=== PATIENT | female | born 1985 | race Caucasian/White ===

== ENCOUNTER 2016-11-02 01:06 | Emergency (ER) | payer OTHER ==
[2016-11-02] MEDS ORDERED: Morphine 2 MG/ML Syringe IVPUSH ONE (01:27)
[2016-11-02] MEDS ORDERED: Famotidine 20 MG/2 ML SDV IVPUSH ONE (01:27)
[2016-11-02] MEDS ORDERED: Sodium Chloride 0.9% 2.5 ML Syringe FLUSH PRN (01:27)
[2016-11-02] MEDS ORDERED: Sodium Chloride 0.9% 1,000 ML IV ONE (01:27)
[2016-11-02] MEDS ORDERED: Ondansetron 4 MG/2 ML SDV IVPUSH ONE (01:27)
--- NOTE | 2016-11-02 01:31 | EDM.PDOC ---
ED HPI GENERAL MEDICAL PROBLEM - General Chief Complaint: Abdominal Pain Stated Complaint: ABDOMINAL PAIN Time Seen by Provider: 11/02/16 01:09 - History of Present Illness INITIAL COMMENTS - FREE TEXT/NARRATIVE: HISTORY AND PHYSICAL: History of present illness: The patient is a 31-year-old female who in 2012 had her gallbladder evaluated and since that time has lost a significant amount of weight and has been doing relatively well until the last one year; she states that one year ago she was with her son and since that time she has had issues but she believes to be determined gallbladder, upper abdominal discomfort bloating and nausea that have recurred on and off over the last one year but did not feel that the symptoms were significant enough to see a provider . Patient presents tonight stating that she woke several hours ago with epigastric discomfort and fullness associated with nausea but no chest pain no shortness of breath no vomiting. The patient states that throughout the course of the one year she has never had pain this severe and this was completely different. She had one episode of diarrhea earlier tonight and one when she woke up with the pain but it was not black or bloody. Prior to yesterday she had normal bowel movements. She has no urinary complaints no back or flank pain and no gynecologic complaints. gets her periods every month and denies . The only surgery she's had on her abdomen are C-sections and she had a thyroidectomy as a teenager for Graves' disease which is well controlled. Patient states that she took ibuprofen for the pain before she came here and she rates it as an 8/10. Initially she said it felt like a deep aching pain but has become more sharp and does not radiate. The patient does not drink alcohol and ate dinner last evening at 6 PM which was baked chicken and no fatty foods. She says that over the last one year she has not noted a definite association of the pain with that she eats. She has no history of heartburn or increased gas. Review of systems: As per history of present illness and below otherwise all systems reviewed and negative. Past medical history: As per history of present illness and as reviewed below otherwise noncontributory. Surgical history: As per history of present illness and as reviewed below otherwise noncontributory. Social history: No reported history of drug or alcohol abuse. Family history: As per history of present illness and as reviewed below otherwise noncontributory. Physical exam: General: Well-developed obese female who is nontoxic vital signs are noted by me. HEENT: Atraumatic, normocephalic, negative for conjunctival pallor or scleral icterus, mucous membranes moist, throat clear, neck supple, nontender, trachea midline. Lungs: Clear to auscultation, breath sounds equal bilaterally, chest nontender. Heart: S1S2, regular, negative for clicks, rubs, or JVD. Abdomen: Soft, nondistended, exam is challenging due to the patient's body habitus the bowel sounds are hypoactive and there is tenderness in the epigastrium on deep palpation without rebound or guarding Negative for masses or hepatosplenomegaly. Negative for costovertebral tenderness. Pelvis: Stable nontender. Genitourinary: Deferred. Rectal: Deferred. Extremities: Atraumatic, negative for cords or calf pain. Neurovascular unremarkable. Neuro: Awake, alert, oriented. Cranial nerves II through XII unremarkable. Cerebellum unremarkable. Motor and sensory unremarkable throughout. Exam nonfocal. Diagnostics: EKG CBC CMP amylase lipase UA UCG abdominal ultrasound Therapeutics: IV fluids Zofran Pepcid morphine Patient feels improved in the ER. I discussed with her all testing results and the absolute need to get followup either with one of her providers at [facility] and/or our surgeon Dr. Desai. I've advised her a low fat diet and will give her some tramadol to use for pain if Tylenol or Motrin does not work. Advised on reasons to return to the ED. Impression: Cholelithiasis/biliary colic improved stable Definitive disposition and diagnosis as appropriate pending reevaluation and review of above. Upper Abdomen Pain Score (Numeric/FACES): 8 - Related Data Allergies Allergy/AdvReac Type Severity Reaction Status Date / Time No Known Allergies Allergy Verified 11/02/16 01:20 Home Meds: Home Meds Levothyroxine Sodium [Synthroid] 325 mcg PO ACBREAKFAST 11/02/16 [History] ED ROS GENERAL - Review of Systems Review Of Systems: ROS reveals no pertinent complaints other than HPI. ED EXAM, GENERAL - Physical Exam Exam: See Below (See dictation) Course - Vital Signs Last Recorded V/S: Last Vital Signs Temp 36.1 C 11/02/16 01:08 Pulse 64 11/02/16 01:08 Resp 18 11/02/16 01:08 BP 172/94 H 11/02/16 01:08 Pulse Ox 95 11/02/16 01:08 - Orders/Labs/Meds Orders: Active Orders 24 hr Category Date Time Status EKG Documentation Completion [RC] STAT Care 11/02/16 01:26 Active Abdomen Ltd [US] Stat Exams 11/02/16 01:27 Taken Sodium Chloride 0.9% [Saline Flush] Med 11/02/16 01:27 Active 10 ml FLUSH ASDIRECTED PRN Sodium Chloride 0.9% [Saline Flush] Med 11/02/16 01:27 Active 2.5 ml FLUSH ASDIRECTED PRN Saline Lock Insert [OM.PC] Stat Oth 11/02/16 01:26 Ordered Medication Orders Sodium Chloride (Saline Flush) 10 ml FLUSH ASDIRECTED PRN PRN Reason: Keep Vein Open Last Admin: 11/02/16 01:53 Dose: 10 ml Admin: 11/02/16 01:52 Dose: 10 ml Sodium Chloride (Saline Flush) 2.5 ml FLUSH ASDIRECTED PRN PRN Reason: Keep Vein Open Last Admin: 11/02/16 01:56 Dose: 2.5 ml Labs: Laboratory Tests 11/02/16 11/02/16 11/02/16 Range/Units 01:36 01:36 01:42 WBC 8.43 (4.0-11.0) K/uL RBC 4.77 (4.30-5.90) M/uL Hgb 14.0 (12.0-16.0) g/dL Hct 41.7 (36.0-46.0) % MCV 87.4 (80.0-98.0) fL MCH 29.4 (27.0-32.0) pg MCHC 33.6 (31.0-37.0) g/dL RDW Std Deviation 43.0 (28.0-62.0) fl RDW Coeff of See 14 (11.0-15.0) % Plt Count 209 (150-400) K/uL MPV 11.30 (7.40-12.00) fL Neut % (Auto) 51.0 (48.0-80.0) % Lymph % (Auto) 38.1 (16.0-40.0) % [place] % (Auto) 7.1 (0.0-15.0) % Eos % (Auto) 3.2 (0.0-7.0) % Baso % (Auto) 0.6 (0.0-1.5) % Neut # (Auto) 4.3 (1.4-5.7) K/uL Lymph # (Auto) 3.2 H (0.6-2.4) K/uL [place] # (Auto) 0.6 (0.0-0.8) K/uL Eos # (Auto) 0.3 (0.0-0.7) K/uL Baso # (Auto) 0.1 (0.0-0.1) K/uL Nucleated RBC % 0.0 /100WBC Nucleated RBCs # 0 K/uL Sodium (136-146) mmol/L Potassium (3.5-5.1) mmol/L Chloride (98-110) mmol/L Carbon Dioxide (21-31) mmol/L BUN (6.0-23.0) mg/dL Creatinine (0.6-1.5) mg/dL Est Cr Clr Drug Dosing mL/min Estimated GFR (MDRD) ml/min Glucose (60-110) mg/dL Calcium (8.8-10.8) mg/dL Total Bilirubin (0.1-1.5) mg/dL AST (5-40) IU/L ALT (8-54) IU/L Alkaline Phosphatase (40-150) Total Protein (6.0-8.0) g/dL Albumin (3.5-5.0) g/dL Globulin (2.0-3.5) g/dL Albumin/Globulin Ratio (1.3-2.8) Amylase (10-90) U/L Lipase (7-80) U/L Urine Color YELLOW Urine Appearance CLEAR Urine pH 6.5 (5.0-8.0) Ur Specific [place] 1.020 (1.001-1.035) Urine Protein NEGATIVE (NEGATIVE) mg/dL Urine Glucose (UA) NEGATIVE (NEGATIVE) mg/dL Urine Ketones NEGATIVE (NEGATIVE) mg/dL Urine Occult Blood LARGE H (NEGATIVE) Urine Nitrite NEGATIVE (NEGATIVE) Urine Bilirubin NEGATIVE (NEGATIVE) Urine Urobilinogen 0.2 (<2.0) EU/dL Ur Leukocyte Esterase NEGATIVE (NEGATIVE) Urine RBC 5-10 (0-2/HPF) Urine WBC 0-2 (0-5/HPF) Ur Epithelial Cells OCCASIONAL (NONE-FEW) Urine Bacteria FEW (NEGATIVE) Urine HCG, Qual NEGATIVE (NEGATIVE) 11/02/16 Range/Units 01:42 WBC (4.0-11.0) K/uL RBC (4.30-5.90) M/uL Hgb (12.0-16.0) g/dL Hct (36.0-46.0) % MCV (80.0-98.0) fL MCH (27.0-32.0) pg MCHC (31.0-37.0) g/dL RDW Std Deviation (28.0-62.0) fl RDW Coeff of See (11.0-15.0) % Plt Count (150-400) K/uL MPV (7.40-12.00) fL Neut % (Auto) (48.0-80.0) % Lymph % (Auto) (16.0-40.0) % [place] % (Auto) (0.0-15.0) % Eos % (Auto) (0.0-7.0) % Baso % (Auto) (0.0-1.5) % Neut # (Auto) (1.4-5.7) K/uL Lymph # (Auto) (0.6-2.4) K/uL [place] # (Auto) (0.0-0.8) K/uL Eos # (Auto) (0.0-0.7) K/uL Baso # (Auto) (0.0-0.1) K/uL Nucleated RBC % /100WBC Nucleated RBCs # K/uL Sodium 140 (136-146) mmol/L Potassium 3.7 (3.5-5.1) mmol/L Chloride 104 (98-110) mmol/L Carbon Dioxide 25 (21-31) mmol/L BUN 14 (6.0-23.0) mg/dL Creatinine 0.8 (0.6-1.5) mg/dL Est Cr Clr Drug Dosing 105.51 mL/min Estimated GFR (MDRD) > 60.0 ml/min Glucose 104 (60-110) mg/dL Calcium 9.6 (8.8-10.8) mg/dL Total Bilirubin 1.4 (0.1-1.5) mg/dL AST 85 H (5-40) IU/L ALT 87 H (8-54) IU/L Alkaline Phosphatase 69 (40-150) Total Protein 7.0 (6.0-8.0) g/dL Albumin 4.2 (3.5-5.0) g/dL Globulin 2.8 (2.0-3.5) g/dL Albumin/Globulin Ratio 1.5 (1.3-2.8) Amylase 54 (10-90) U/L Lipase 26 (7-80) U/L Urine Color Urine Appearance Urine pH (5.0-8.0) Ur Specific [place] (1.001-1.035) Urine Protein (NEGATIVE) mg/dL Urine Glucose (UA) (NEGATIVE) mg/dL Urine Ketones (NEGATIVE) mg/dL Urine Occult Blood (NEGATIVE) Urine Nitrite (NEGATIVE) Urine Bilirubin (NEGATIVE) Urine Urobilinogen (<2.0) EU/dL Ur Leukocyte Esterase (NEGATIVE) Urine RBC (0-2/HPF) Urine WBC (0-5/HPF) Ur Epithelial Cells (NONE-FEW) Urine Bacteria (NEGATIVE) Urine HCG, Qual (NEGATIVE) Meds: Medications Generic Name Dose Route Start Last Admin Trade Name Freq PRN Reason Stop Dose Admin Sodium Chloride 10 ml 11/02/16 01:27 11/02/16 01:53 Saline Flush FLUSH 10 ml ASDIRECTED PRN Administration Keep Vein Open Sodium Chloride 2.5 ml 11/02/16 01:27 11/02/16 01:56 Saline Flush FLUSH 2.5 ml ASDIRECTED PRN Administration Keep Vein Open Discontinued Medications Generic Name Dose Route Start Last Admin Trade Name Freq PRN Reason Stop Dose Admin Famotidine 20 mg 11/02/16 01:27 11/02/16 01:52 Pepcid IVPUSH 11/02/16 01:28 20 mg ONETIME ONE Administration Sodium Chloride 1,000 mls @ 999 mls/hr 11/02/16 01:27 11/02/16 01:48 Normal Saline IV 11/02/16 02:27 999 mls/hr STAT ONE Administration Morphine Sulfate 4 mg 11/02/16 01:27 11/02/16 01:54 Morphine IVPUSH 11/02/16 01:28 4 mg ONETIME ONE Administration Ondansetron HCl 4 mg 11/02/16 01:27 11/02/16 01:51 Zofran IVPUSH 11/02/16 01:28 4 mg ONETIME ONE Administration Departure - Departure Time of Disposition: 04:08 Disposition: Home, Self-Care 01 Condition: good Clinical Impression: Biliary colic Cholelithiasis Qualifiers: Cholelithiasis location: gallbladder Cholecystitis presence: without cholecystitis Biliary obstruction: without biliary obstruction Qualified Code(s) : K80.20 - Calculus of gallbladder without cholecystitis without obstruction - Discharge Information Forms: ED Department Discharge Additional Instructions: The following information is given to patients seen in the emergency department who are being discharged to home. This information is to outline your options for follow-up care. We provide all patients seen in our emergency department with a follow-up referral. The need for follow-up, as well as the timing and circumstances, are variable depending upon the specifics of your emergency department visit. If you don't have a primary care physician on staff, we will provide you with a referral. We always advise you to contact your personal physician following an emergency department visit to inform them of the circumstance of the visit and for follow-up with them and/or the need for any referrals to a consulting specialist. The emergency department will also refer you to a specialist when appropriate. This referral assures that you have the opportunity for followup care with a specialist. All of these measure are taken in an effort to provide you with optimal care, which includes your followup. Under all circumstances we always encourage you to contact your private physician who remains a resource for coordinating your care. When calling for followup care, please make the office aware that this follow-up is from your recent emergency room visit. If for any reason you are refused follow-up, please contact the [facility] emergency department at and ask to speak to the emergency department charge nurse. [facility] Primary care- Internal Medicine and Family [address] [address] [facility] Specialty Care-General Surgery---Dr Desai [facility] [address] [place] [id number] Use [id number] medications for pain and add the tramadol as needed and as we discussed. Please try eat a low fat diet and to call for followup either at [facility] or with our surgery clinic/internal medicine clinic. Return to ER as needed and as we discussed - My Orders Last 24 Hours: My Active Orders 11/02/16 01:26 EKG Documentation Completion [RC] STAT Saline Lock Insert [OM.PC] Stat 11/02/16 01:27 Abdomen Ltd [US] Stat Sodium Chloride 0.9% [Saline Flush] 10 ml FLUSH ASDIRECTED PRN Sodium Chloride 0.9% [Saline Flush] 2.5 ml FLUSH ASDIRECTED PRN - Assessment/Plan Last 24 Hours: My Active Orders 11/02/16 01:26 EKG Documentation Completion [RC] STAT Saline Lock Insert [OM.PC] Stat 11/02/16 01:27 Abdomen Ltd [US] Stat Sodium Chloride 0.9% [Saline Flush] 10 ml FLUSH ASDIRECTED PRN Sodium Chloride 0.9% [Saline Flush] 2.5 ml FLUSH ASDIRECTED PRN
[2016-11-02] MEDS: Sodium Chloride 0.9% 10 ML Syringe FLUSH PRN ×2 (01:52→01:53)
[2016-11-02 02:28] LABS: CHLORIDE,CL 104 mmol/L (98-110); SODIUM,NA 140 mmol/L (136-146)
[2016-11-02 04:24] VITALS: BP 129/82
--- NOTE | 2016-11-02 18:11 | US ---
EXAM DATE: 11/02/16 PATIENT'S AGE: 31 Patient: SANDRA MCCULLOUGH Facility: [place], [place] Site . Site : 1985 Study: US Abdomen [id number]/[id number] 2:57:17 AM Ordering Physician: Kaylyn Campbell Final Report: INDICATION: Abdominal pain TECHNIQUE: Ultrasound abdomen limited. Sonographic images of the right upper quadrant were obtained using segura-scale and color Doppler images. COMPARISON: 11/25/2012 FINDINGS: Liver: Increased hepatic echogenicity compatible with steatosis with mildly heterogeneous echotexture. No discrete hepatic lesion seen. Gallbladder: Cholelithiasis. No significant gallbladder wall thickening. Common bile duct: 3 mm. Pancreas: Not well seen. Right kidney: 9.9 x 5.5 x 6.5 cm. Unremarkable echotexture and cortex. No masses , stones, or hydronephrosis. IMPRESSION: Cholelithiasis. Hepatic steatosis with heterogeneous hepatic echotexture. Correlate with hepatic enzymes. Limited evaluation of the pancreas. Dictated by Wesly Sheikh MD @ 11/02/2016 3:55:52 AM Dictated by: Wesly Sheikh MD @ 11/02/2016 03:56:35 (Electronic Signature) Report Signed by Proxy. LOUISE
== END 2016-11-02 04:24 | disposition home or self-care (01) ==
LOC: MW.ED 01:06
DX: K80.70 Calculus of gallbladder and bile duct without cholecystitis without obstruction (principal)
CPT/HCPCS: 76705; 80053; 81001; 81025; 82150; 83690; 85025; 93005; 96361; 96374; 96375; 99284; J2270; J2405; J7040